=== PATIENT | female | born 2000 ===

== ENCOUNTER 2022-04-10 13:47 | Emergency (ER) | payer OTHER ==
[~2022-04-10] VITALS: Ht 160 cm; Wt 79.4 kg
== END 2022-04-10 17:44 | disposition home or self-care (01) ==
LOC: ER 13:47
DX: S52.501A Unspecified fracture of the lower end of right radius, initial encounter for closed fracture (principal); W18.39XA Other fall on same level, initial encounter; Y93.89 Activity, other specified; Y92.012 Bathroom of single-family (private) house as the place of occurrence of the external cause